=== PATIENT | female | born 1955 | race Caucasian/White ===

== ENCOUNTER 2019-12-17 09:10 | Day surgery (SDC) | payer MEDICARE, BC ==
[~2019-12-17] VITALS: Ht 170.2 cm; Wt 98.7 kg
[2019-12-17] MEDS ORDERED: LACTATED RINGERS 1,000 ML IV SCH (10:02)
[2019-12-17 10:08] VITALS: BP 107/63
[2019-12-17] MEDS ORDERED: ONDA4TAB7 PO (10:30)
[2019-12-17] MEDS ORDERED: TRAZ-175 PO (10:30)
[2019-12-17] MEDS ORDERED: CALCIUM PO (10:30)
[2019-12-17] MEDS ORDERED: HYDR-826 PO (10:30)
[2019-12-17] MEDS ORDERED: CHLORHEXIDINE 15 ML UDC MM ONE (10:30)
[2019-12-17] MEDS ORDERED: PREG50CA PO (10:30)
[2019-12-17] MEDS ORDERED: WELLBUTRIN PO (10:30)
[2019-12-17] MEDS ORDERED: LEVOTHYROXINE PO (10:30)
[2019-12-17] MEDS ORDERED: OMEP-110 PO (10:30)
[2019-12-17] MEDS ORDERED: HYDR-3241 PO (10:30)
[2019-12-17] MEDS ORDERED: NALT50TA PO (10:30)
[2019-12-17] MEDS ORDERED: LETR2.5T3 PO (10:30)
[2019-12-17] MEDS ORDERED: LIDOCAINE-MPF 1%, 2ML INFIL ONE (10:30)
[2019-12-17 10:36] LABS: ALANINE AMINOTRANSFERASE 39 U/L (12-78); ALBUMIN 2.8 g/dL (3.4-5.0); ANION GAP 11 mmol/L (5-15); CALCIUM 9.2 mg/dL (8.5-10.1); CHLORIDE 107 mmol/L (98-107)
[2019-12-17 10:39] LABS: ALKALINE PHOSPHATASE 283 U/L (45-117)
[2019-12-17 10:49] LABS: CREATININE 1.23 mg/dL (0.55-1.02)
[2019-12-17 10:50] LABS: TOTAL PROTEIN 6.7 g/dL (6.4-8.2)
[2019-12-17] MEDS ORDERED: FENTANYL PF 100 MCG/2ML ONE (10:57)
[2019-12-17] MEDS ORDERED: ROCURONIUM 10 MG/ML,10ML ONE (11:36)
[2019-12-17] MEDS ORDERED: SUCCINYLCHOLINE 20 MG/ML, 10ML ONE (11:36)
[2019-12-17] MEDS ORDERED: AMPICILLIN/SULBACTAM 3 GM in SODIUM CHLORIDE 0.9% 100 ML IV ONE (12:30)
[2019-12-17] MEDS ORDERED: DEXAMETHASONE 4 MG/ML, 1ML ONE (12:39)
[2019-12-17] MEDS ORDERED: PROPOFOL 10 MG/ML, 20ML ONE (12:39)
[2019-12-17] MEDS ORDERED: ONDANSETRON 2MG/ML, 2ML ONE (12:39)
[2019-12-17] MEDS ORDERED: PROMETHAZINE 25 MG/ML, 1ML ONE (13:08)
[2019-12-17] MEDS ORDERED: PROMETHAZINE 25 MG/ML, 1ML IV PRN (13:30)
[2019-12-17] MEDS ORDERED: OMNIPAQUE 350 MG/ML, 50 ML BOTTLE ONE (14:32)
== END 2019-12-17 14:30 | disposition home or self-care (01) ==
LOC: OUT 09:10
PROVIDERS: ATTEND Internal Medicine Geriatric Medicine
DX: K86.89 Other specified diseases of pancreas (principal); Z11.59 Encounter for screening for other viral diseases; T85.590A Other mechanical complication of bile duct prosthesis, initial encounter; C25.0 Malignant neoplasm of head of pancreas; K83.1 Obstruction of bile duct; K21.9 Gastro-esophageal reflux disease without esophagitis; E11.9 Type 2 diabetes mellitus without complications; G47.33 Obstructive sleep apnea (adult) (pediatric); F32.9 Major depressive disorder, single episode, unspecified; E66.9 Obesity, unspecified; Z79.890 Hormone replacement therapy; Z79.891 Long term (current) use of opiate analgesic; Z79.899 Other long term (current) drug therapy; Z85.3 Personal history of malignant neoplasm of breast; Z88.5 Allergy status to narcotic agent; Y83.8 Other surgical procedures as the cause of abnormal reaction of the patient, or of later complication, without mention of misadventure at the time of the procedure
CPT/HCPCS: 43242; 43276; 74328; 80053; 82962; 88172; 88173; 88307; 93005; C1769; C2625; J0330; J1100; J2405; J2550; J2704; J3010; J7120; Q9967; U0001

== ENCOUNTER 2020-05-11 09:15 | Day surgery (SDC) | payer MEDICARE, BC ==
[~2020-05-11] VITALS: Ht 170.2 cm; Wt 82.7 kg
[~2020-05-11 09:15] MED LIST: CALCIUM PO; HYDR-3241 PO; HYDR-826 PO; LETR2.5T3 PO; LEVOTHYROXINE PO; NALT50TA PO; OMEP-110 PO; ONDA4TAB7 PO; PREG50CA PO; TRAZ-175 PO; WELLBUTRIN PO
[2020-05-11 09:53] VITALS: BP 103/71
[2020-05-11] MEDS ORDERED: SODIUM CHLORIDE 0.9% 1,000 ML IV SCH (10:00)
[2020-05-11] MEDS ORDERED: PLEASE ENTER HEIGHT AND WEIGHT MC SCH (10:00)
[2020-05-11] MEDS ORDERED: CHOL10003 PO (10:01)
[2020-05-11] MEDS ORDERED: PHENERGAN PO (10:01)
[2020-05-11] MEDS ORDERED: TRAM50TA2 PO (10:01)
[2020-05-11] MEDS ORDERED: CEFAZOLIN PMX 1GM/50ML 50 ML IV ONE (10:11)
[2020-05-11] MEDS ORDERED: LIDOCAINE 1%, 20ML ONE (10:49)
[2020-05-11] MEDS ORDERED: MIDAZOLAM 1 MG/ML, 5ML ONE ×2 (10:59)
[2020-05-11] MEDS ORDERED: FENTANYL PF 100 MCG/2ML ONE (10:59)
== END 2020-05-11 12:45 | disposition home or self-care (01) ==
LOC: OUT 09:15
PROVIDERS: ATTEND Internal Medicine
DX: Z45.2 Encounter for adjustment and management of vascular access device (principal); C25.0 Malignant neoplasm of head of pancreas; Z88.5 Allergy status to narcotic agent; Z79.899 Other long term (current) drug therapy; Z85.3 Personal history of malignant neoplasm of breast; Z82.49 Family history of ischemic heart disease and other diseases of the circulatory system
CPT/HCPCS: 36561; 76937; 77001; 99156; 99157; C1788; J0690; J1642; J2250; J3010; J7030

== ENCOUNTER → 2021-02-17 | Outpatient (CLI) | payer MEDICARE, BC ==
[~2021-02-17] MED LIST changes: +BUPR150T73 PO; +CALC1CAP8 PO; +CHOL10003 PO; +CYCL5TAB PO; +FLUT9.9S NS; +LEVO137T3 PO; +PHENERGAN PO; +PROM25TA10 PO; +PROP10DR14 EACHEYE; +TRAM50TA2 PO; +TRAZ50TA66 PO; +TRIA5PAS10 MT; +ZOLP10TA PO
[2021-02-17 14:45] LABS: CHLORIDE 108 mmol/L (98-107)
[2021-02-17 14:58] LABS: ALANINE AMINOTRANSFERASE 31 U/L (12-78); ALBUMIN 3.2 g/dL (3.4-5.0); ALKALINE PHOSPHATASE 155 U/L (45-117); ANION GAP 8 mmol/L (5-15); BILIRUBIN,TOTAL 1.4 mg/dL (0.2-1.0); CREATININE 0.79 mg/dL (0.55-1.02)
== END | disposition home or self-care (01) ==
LOC: STAR 13:25
PROVIDERS: ATTEND Surgery
DX: Z01.818 Encounter for other preprocedural examination (principal); K43.2 Incisional hernia without obstruction or gangrene; I44.4 Left anterior fascicular block; I21.09 ST elevation (STEMI) myocardial infarction involving other coronary artery of anterior wall
CPT/HCPCS: 36415; 80053; 93005

== ENCOUNTER 2021-02-23 11:15 | Observation (INO) | payer MEDICARE, BC ==
[~2021-02-23] VITALS: Ht 172.7 cm; Wt 78.0 kg
[~2021-02-23 11:15] MED LIST changes: +BUPIVACAINE/PF 0.5% ONE; +EPINEPHRINE 1 MG/ML, 1ML ONE
[2021-02-23] MEDS ORDERED: CHLORHEXIDINE 15 ML UDC ONE (11:52)
[2021-02-23] MEDS ORDERED: LACTATED RINGERS 1,000 ML IV SCH (12:00)
[2021-02-23] MEDS ORDERED: CHLORHEXIDINE 15 ML UDC PO ONE (12:00)
[2021-02-23] MEDS ORDERED: HYDROmorphone 1 MG/ML, 1ML INJ IVPush PRN (12:30)
[2021-02-23] MEDS ORDERED: HYDROcodone/APAP 7.5-325MG/15ML UDC PO PRN (12:30)
[2021-02-23] MEDS ORDERED: MEPERIDINE/PF 25MG/0.5ML IVPush PRN (12:30)
[2021-02-23] MEDS ORDERED: ONDANSETRON 2MG/ML, 2ML IVPush PRN ×2 (12:30→16:30)
[2021-02-23] MEDS ORDERED: PROMETHAZINE 25 MG/ML, 1ML IVPush PRN (12:30)
[2021-02-23] MEDS ORDERED: MIDAZOLAM 1 MG/ML, 2ML ONE (13:40)
[2021-02-23] MEDS ORDERED: FENTANYL PF 100 MCG/2ML ONE ×2 (13:40→16:37)
[2021-02-23] MEDS ORDERED: NEOSTIGMINE 1 MG/ML, 10ML ONE (14:02)
[2021-02-23] MEDS ORDERED: PHENYLEPHRINE 10 MG/ML ONE (14:02)
[2021-02-23] MEDS ORDERED: ROCURONIUM 10 MG/ML,10ML ONE (14:02)
[2021-02-23] MEDS ORDERED: CEFAZOLIN 1,000 MG ONE (14:02)
[2021-02-23] MEDS ORDERED: SUCCINYLCHOLINE 20 MG/ML, 10ML ONE (14:02)
[2021-02-23] MEDS ORDERED: DEXAMETHASONE 4 MG/ML, 1ML ONE (14:02)
[2021-02-23] MEDS ORDERED: EPHEDRINE 50 MG/ML, 1ML ONE (14:02)
[2021-02-23] MEDS ORDERED: ONDANSETRON 2MG/ML, 2ML ONE (14:02)
[2021-02-23] MEDS ORDERED: GLYCOPYRROLATE 0.2MG/1ML, 5ML ONE (14:02)
[2021-02-23] MEDS ORDERED: PROPOFOL 10 MG/ML, 20ML ONE (14:02)
[2021-02-23] MEDS ORDERED: CALCIUM CARBONATE 500 MG TAB.CHEW PO PRN (16:30)
[2021-02-23] MEDS ORDERED: BUPROPION SR 150 MG TABLET PO PRN (16:30)
[2021-02-23] MEDS ORDERED: ZOLPIDEM 5MG TABLET PO PRN (16:30)
[2021-02-23] MEDS ORDERED: OXYcodone IR 5MG TABLET PO PRN (16:30)
[2021-02-23] MEDS ORDERED: PREGABALIN 50 MG CAP PO PRN ×2 (16:30→21:00)
[2021-02-23] MEDS ORDERED: LORazepam 2 MG/ML, 1ML IVPush PRN (16:30)
[2021-02-23] MEDS ORDERED: HYDROmorphone 2 MG/ML, 1ML IVPush PRN (16:30)
[2021-02-23] MEDS ORDERED: TRAZODONE 50MG TABLET PO PRN (16:30)
[2021-02-23] MEDS ORDERED: DIPHENHYDRAMINE 50 MG/ML, 1ML IVPush PRN (16:30)
[2021-02-23] MEDS ORDERED: HYDROcodone/APAP 7.5-325MG/15ML UDC ONE (16:37)
[2021-02-23] MEDS: FENTANYL PF 100 MCG/2ML IV PRN ×2 (16:38→16:43)
[2021-02-23] MEDS ORDERED: HYDROmorphone 2 MG/ML, 1ML ONE (16:51)
[2021-02-23] MEDS ORDERED: PROMETHAZINE 25 MG/ML, 1ML ONE (17:41)
[2021-02-23] MEDS: ACETAMINOPHEN 100 ML IVPB SCH (18:00)
[2021-02-23 18:15] VITALS: BP 114/69
[2021-02-23] MEDS: LACTATED RINGERS 1,000 ML IV SCH (18:19)
[2021-02-23] MEDS: CYCLOBENZAPRINE 10 MG TABLET PO SCH (20:20)
[2021-02-23] MEDS: SODIUM CHLORIDE FLUSH 10ML SYR IVF SCH (20:28)
[2021-02-23] MEDS: PROPYLENE GLYCOL EACHEYE SCH (20:42)
[2021-02-23] MEDS ORDERED: LEVOTHYROXINE 137 MCG TABLET PO SCH (21:00)
[2021-02-23] MEDS ORDERED: OMEPRAZOLE 20 MG CAPSULE.DR PO SCH (21:00)
[2021-02-23] MEDS ORDERED: LETROZOLE 2.5 MG TABLET PO SCH (21:00)
[2021-02-24 00:01] VITALS: BP 113/72
[2021-02-24 03:39] VITALS: BP 114/68
[2021-02-24] MEDS: ACETAMINOPHEN 100 ML IVPB SCH ×3 (05:48→11:54)
[2021-02-24] MEDS ORDERED: ENOXAPARIN 30 MG/0.3 ML SQ SCH (06:00)
[2021-02-24 08:33] VITALS: BP 123/73
[2021-02-24] MEDS ORDERED: FLUTICASONE NASAL SPRAY 16GM NAS SCH (09:00)
[2021-02-24] MEDS: PROPYLENE GLYCOL EACHEYE SCH (09:00)
[2021-02-24] MEDS: CYCLOBENZAPRINE 10 MG TABLET PO SCH (09:00)
[2021-02-24] MEDS: SODIUM CHLORIDE FLUSH 10ML SYR IVF SCH (09:29)
[2021-02-24 13:35] VITALS: BP 108/64
[2021-02-24] MEDS: LACTATED RINGERS 1,000 ML IV SCH (14:19)
== END 2021-02-24 14:10 | disposition home or self-care (01) ==
LOC: OUT 11:15 → 4NE 18:04 → OUT 23:52 → 4NE 23:54
PROVIDERS: ADMIT Surgery; ATTEND Surgery
DX: K43.2 Incisional hernia without obstruction or gangrene (principal); E11.9 Type 2 diabetes mellitus without complications; Z85.3 Personal history of malignant neoplasm of breast; Z85.07 Personal history of malignant neoplasm of pancreas; Z79.899 Other long term (current) drug therapy
CPT/HCPCS: 15734; 49566; 82962; 96372; 96374; C1781; G0378; J0171; J0330; J0690; J1100; J1170; J1650; J2370; J2405; J2550; J2704; J2710; J3010; J7120; S0020; J2250